=== PATIENT | male | born 1965 | race African-American/Black ===

== ENCOUNTER 2018-01-18 00:25 | Emergency (ER) | payer OTHER ==
[~2018-01-18] VITALS: Ht 190.5 cm; Wt 108.9 kg
[2018-01-18 02:03] VITALS: BP 129/98
== END 2018-01-18 02:30 | disposition home or self-care (01) ==
LOC: ER 00:25 → EDBD 00:25 → ER 02:30
DX: R41.82 Altered mental status, unspecified (principal); Z86.73 Personal history of transient ischemic attack (TIA), and cerebral infarction without residual deficits